=== PATIENT | male | born 1940 | race Caucasian/White ===

== ENCOUNTER → 2023-04-19 07:46 | Outpatient (REF) | payer MEDICARE, SELFPAY ==
[2023-04-19 09:49] LABS: Free T4 0.58 ng/dl (0.78-2.19)
== END ==
LOC: REG 07:46
PROVIDERS: ATTENDING PHYSICIAN Internal Medicine Endocrinology, Diabetes & Metabolism; FAMILY PHYSICIAN Family Medicine; REFERRING PHYSICIAN Internal Medicine Critical Care Medicine
DX: E04.1 Nontoxic single thyroid nodule (principal)
CPT/HCPCS: 36415; 84439; 84443

== ENCOUNTER → 2023-05-26 09:45 | Outpatient (REF) | payer MEDICARE, SELFPAY | LOC: RCS 09:45 | PROVIDERS: ATTENDING PHYSICIAN Physician Assistant Medical; FAMILY PHYSICIAN Family Medicine; OTHER PHYSICIAN Surgery; REFERRING PHYSICIAN Internal Medicine Critical Care Medicine | DX: R07.9 Chest pain, unspecified (principal) | CPT/HCPCS: 93017; 93350 ==

== ENCOUNTER → 2023-06-05 15:09 | Outpatient (REF) | payer MEDICARE, SELFPAY | LOC: HWRAD 15:09 | PROVIDERS: ATTENDING PHYSICIAN Internal Medicine Critical Care Medicine; FAMILY PHYSICIAN Family Medicine; OTHER PHYSICIAN Internal Medicine Endocrinology, Diabetes & Metabolism; REFERRING PHYSICIAN Surgery | DX: R91.1 Solitary pulmonary nodule (principal) | CPT/HCPCS: 71250 ==

== ENCOUNTER → 2023-10-31 07:14 | Outpatient (REF) | payer MEDICARE, SELFPAY ==
[2023-10-31 09:22] LABS: % Basophils 0.2 % (0-2); % Eosinophils 1.2 % (0-6); % Immature Granulocytes 0.4 % (0-0.5); % Lymphocytes 26.8 % (20.5-51.1); % Neutrophils 61.4 % (42.2-75.2); Absolute Eosinophils 0.1 10^3/uL (0-0.7); Absolute Lymphocytes 1.3 10^3/uL (1.2-3.4); Absolute Monocytes 0.5 10^3/uL (0.1-0.6); Hematocrit 36.4 % (39.0-52.0); Hemoglobin 12.3 g/dL (13.0-18.0); Mean Corp Hgb Conc. 33.8 g/dL (33.0-37.0); Mean Corpuscular Hgb 32.2 pg (27.0-31.0); Mean Corpuscular Volume 95.3 fL (80.0-94.0); Mean Platelet Volume 10.8 fL (7.4-10.4); Nucleated Red Blood Cells % 0 % (-); Platelet Count 158 10^3/uL (130-400); Red Blood Cell Count 3.82 10^6/uL (4.70-6.10); Red Cell Dist. Width 13.9 % (11.5-14.5); White Blood Cell Count 4.9 10^3/uL (4.8-10.8)
[2023-10-31 09:38] LABS: ALT (SGPT) 17 U/L (0-50); AST (SGOT) 27 U/L (17-59); Albumin 3.7 g/dl (3.5-5.0); Alkaline Phosphatase 103 U/L (38-126); Blood Urea Nitrogen 19 mg/dl (9-20); Calcium 8.5 mg/dl (8.4-10.2); Carbon Dioxide 28 mmol/L (22-30); Chloride 105 mmol/L (98-107); Glucose 111 mg/dl (70-99); HDL Cholesterol 42 mg/dl; LDL Cholesterol, Calculated 77 mg/dl; Potassium 4.7 mmol/L (3.5-5.1); Sodium 144 mmol/L (135-145); Total Bilirubin 0.7 mg/dl (0.2-1.3); Total Cholesterol 131 mg/dl (50-199); Total Protein 6.5 g/dl (6.3-8.2); Triglyceride 63 mg/dl (10-149); Very Low Density Lipoprotein 12 mg/dl (0-30); eGFR > 60.00
== END ==
LOC: HWLAB 07:14
PROVIDERS: ATTENDING PHYSICIAN Family Medicine
DX: I10 Essential (primary) hypertension (principal); E78.5 Hyperlipidemia, unspecified; C34.92 Malignant neoplasm of unspecified part of left bronchus or lung
CPT/HCPCS: 36415; 80053; 80061; 85025

== ENCOUNTER → 2023-11-17 07:33 | Outpatient (REF) | payer MEDICARE, SELFPAY ==
[2023-11-17 09:35] LABS: % Basophils 0.2 % (0-2); % Eosinophils 0.6 % (0-6); % Immature Granulocytes 0.2 % (0-0.5); % Lymphocytes 19.3 % (20.5-51.1); % Monocytes 6.7 % (1.7-9.3); Absolute Monocytes 0.3 10^3/uL (0.1-0.6); Absolute Neutrophils 3.7 10^3/uL (1.4-6.5); Hematocrit 37.5 % (39.0-52.0); Hemoglobin 12.5 g/dL (13.0-18.0); Mean Corp Hgb Conc. 33.3 g/dL (33.0-37.0); Mean Corpuscular Hgb 30.9 pg (27.0-31.0); Mean Corpuscular Volume 92.8 fL (80.0-94.0); Mean Platelet Volume 11.3 fL (7.4-10.4); Nucleated Red Blood Cells % 0 % (-); Platelet Count 161 10^3/uL (130-400); Red Blood Cell Count 4.04 10^6/uL (4.70-6.10); Red Cell Dist. Width 13.4 % (11.5-14.5); White Blood Cell Count 5.1 10^3/uL (4.8-10.8)
[2023-11-17 10:20] LABS: Iron 80 ug/dl (49-181)
[2023-11-17 10:50] LABS: Ferritin 95.6 ng/ml (17.9-464.0)
== END ==
LOC: HWLAB 07:33
PROVIDERS: ATTENDING PHYSICIAN Family Medicine
DX: D64.9 Anemia, unspecified (principal)
CPT/HCPCS: 36415; 82728; 83540; 85025

== ENCOUNTER → 2023-12-12 10:19 | Outpatient (REF) | payer MEDICARE, SELFPAY | LOC: HWRAD 10:19 | PROVIDERS: ATTENDING PHYSICIAN Internal Medicine Critical Care Medicine; FAMILY PHYSICIAN Family Medicine; OTHER PHYSICIAN Internal Medicine Endocrinology, Diabetes & Metabolism; REFERRING PHYSICIAN Surgery | DX: C34.92 Malignant neoplasm of unspecified part of left bronchus or lung (principal) | CPT/HCPCS: 71250 ==

== ENCOUNTER → 2024-01-18 13:02 | Outpatient (REF) | payer MEDICARE, SELFPAY | LOC: HWRCS 13:02 | PROVIDERS: ATTENDING PHYSICIAN Nurse Practitioner; FAMILY PHYSICIAN Family Medicine | DX: R06.02 Shortness of breath (principal); R07.9 Chest pain, unspecified | CPT/HCPCS: 93306 ==

== ENCOUNTER → 2024-01-22 08:00 | Outpatient (REF) | payer MEDICARE, SELFPAY | LOC: DHCBC/DCA 08:00 | PROVIDERS: ATTENDING PHYSICIAN Nurse Practitioner; FAMILY PHYSICIAN Family Medicine | DX: R06.02 Shortness of breath (principal); R07.9 Chest pain, unspecified | CPT/HCPCS: 78452; 93017; A9500 ==

== ENCOUNTER → 2024-01-29 07:59 | Outpatient (REF) | payer MEDICARE, SELFPAY ==
[2024-01-29 08:39] LABS: Ionized Calcium 1.14 mMOL/L (1.15-1.33)
[2024-01-29 09:06] LABS: ALT (SGPT) 35 U/L (0-50); AST (SGOT) 33 U/L (17-59); Albumin 4.1 g/dl (3.5-5.0); Alkaline Phosphatase 94 U/L (38-126); Blood Urea Nitrogen 17 mg/dl (9-20); Calcium 8.5 mg/dl (8.4-10.2); Carbon Dioxide 29 mmol/L (22-30); Chloride 104 mmol/L (98-107); Glucose 114 mg/dl (70-99); Potassium 4.6 mmol/L (3.5-5.1); Sodium 142 mmol/L (135-145); Total Bilirubin 0.6 mg/dl (0.2-1.3); Total Protein 7.2 g/dl (6.3-8.2); eGFR > 60.00
[2024-01-29 09:16] LABS: Free T4 0.65 ng/dl (0.78-2.19)
[2024-01-29 09:36] LABS: Vitamin D, 25-OH*** 27.6 ng/mL (30-80)
[2024-01-30 10:59] LABS: Intact PTH 53.9 pg/ml (13.6-85.8)
== END ==
LOC: REG 07:59
PROVIDERS: ATTENDING PHYSICIAN Internal Medicine Endocrinology, Diabetes & Metabolism; FAMILY PHYSICIAN Family Medicine; OTHER PHYSICIAN Surgery; REFERRING PHYSICIAN Internal Medicine Critical Care Medicine
DX: E04.1 Nontoxic single thyroid nodule (principal); E21.0 Primary hyperparathyroidism; E83.52 Hypercalcemia; E55.9 Vitamin D deficiency, unspecified
CPT/HCPCS: 36415; 80053; 82306; 82330; 83970; 84439; 84443

== ENCOUNTER → 2024-03-01 08:39 | Outpatient (REF) | payer MEDICARE, SELFPAY ==
[2024-03-01 11:45] LABS: Free T4 1.02 ng/dl (0.78-2.19)
[2024-03-01 11:59] LABS: TSH 5.66 uIU/ml (0.47-4.68)
== END ==
LOC: HWLAB 08:39
PROVIDERS: ATTENDING PHYSICIAN Internal Medicine Endocrinology, Diabetes & Metabolism; FAMILY PHYSICIAN Family Medicine; OTHER PHYSICIAN Internal Medicine Cardiovascular Disease; OTHER PHYSICIAN Surgery; REFERRING PHYSICIAN Internal Medicine Critical Care Medicine
DX: E03.9 Hypothyroidism, unspecified (principal)
CPT/HCPCS: 36415; 84439; 84443

== ENCOUNTER → 2024-05-17 08:02 | Outpatient (REF) | payer MEDICARE, SELFPAY ==
[2024-05-17 09:43] LABS: % Basophils 0.2 % (0-2); % Eosinophils 1.1 % (0-6); % Immature Granulocytes 0.2 % (0-0.5); % Lymphocytes 24.5 % (20.5-51.1); % Monocytes 9.3 % (1.7-9.3); % Neutrophils 64.7 % (42.2-75.2); Absolute Eosinophils 0.1 10^3/uL (0-0.7); Absolute Lymphocytes 1.1 10^3/uL (1.2-3.4); Absolute Monocytes 0.4 10^3/uL (0.1-0.6); Absolute Neutrophils 2.9 10^3/uL (1.4-6.5); Hematocrit 40.5 % (39.0-52.0); Hemoglobin 13.3 g/dL (13.0-18.0); Mean Corp Hgb Conc. 32.8 g/dL (33.0-37.0); Mean Corpuscular Hgb 30.9 pg (27.0-31.0); Mean Corpuscular Volume 94.2 fL (80.0-94.0); Nucleated Red Blood Cells % 0 % (-); Platelet Count 143 10^3/uL (130-400); Red Cell Dist. Width 14.4 % (11.5-14.5); White Blood Cell Count 4.5 10^3/uL (4.8-10.8)
[2024-05-17 10:23] LABS: Glycohemoglobin (HgbA1c) 5.7 % (4.0-5.6)
== END ==
LOC: HWLAB 08:02
PROVIDERS: ATTENDING PHYSICIAN Family Medicine
DX: D64.9 Anemia, unspecified (principal); R73.01 Impaired fasting glucose
CPT/HCPCS: 36415; 83036; 85025

== ENCOUNTER → 2024-05-30 10:15 | Outpatient (REF) | payer MEDICARE, SELFPAY | LOC: HWRAD 10:15 | PROVIDERS: ATTENDING PHYSICIAN Internal Medicine Critical Care Medicine; FAMILY PHYSICIAN Family Medicine; REFERRING PHYSICIAN Surgery | DX: C34.92 Malignant neoplasm of unspecified part of left bronchus or lung (principal) | CPT/HCPCS: 71250 ==

== ENCOUNTER → 2024-07-23 12:11 | Outpatient (REF) | payer MEDICARE, SELFPAY | LOC: HWRAD 12:11 | PROVIDERS: ATTENDING PHYSICIAN Internal Medicine Critical Care Medicine; FAMILY PHYSICIAN Family Medicine | DX: J44.9 Chronic obstructive pulmonary disease, unspecified (principal) | CPT/HCPCS: 71046 ==

== ENCOUNTER → 2024-08-20 08:56 | Outpatient (REF) | payer MEDICARE, SELFPAY ==
[2024-08-20 09:45] LABS: Ionized Calcium 1.09 mMOL/L (1.15-1.33)
[2024-08-20 10:20] LABS: ALT (SGPT) 19 U/L (0-50); AST (SGOT) 23 U/L (17-59); Albumin 4.2 g/dl (3.5-5.0); Alkaline Phosphatase 80 U/L (38-126); Blood Urea Nitrogen 15 mg/dl (9-20); Calcium 8.9 mg/dl (8.4-10.2); Carbon Dioxide 31 mmol/L (22-30); Chloride 107 mmol/L (98-107); Glucose 114 mg/dl (70-99); Potassium 4.5 mmol/L (3.5-5.1); Sodium 143 mmol/L (135-145); Total Bilirubin 0.7 mg/dl (0.2-1.3); Total Protein 7.2 g/dl (6.3-8.2); eGFR > 60.00
[2024-08-20 10:24] LABS: Blood Urea Nitrogen 14 mg/dl (9-20)
[2024-08-20 10:33] LABS: Free T4 0.63 ng/dl (0.78-2.19); Vitamin D, 25-OH*** 45.5 ng/mL (30-80)
[2024-08-20 10:46] LABS: TSH 9.11 uIU/ml (0.47-4.68)
[2024-08-21 10:36] LABS: Intact PTH 57.4 pg/ml (13.6-85.8)
== END ==
LOC: REG 08:56
PROVIDERS: ATTENDING PHYSICIAN Internal Medicine Endocrinology, Diabetes & Metabolism; FAMILY PHYSICIAN Family Medicine; OTHER PHYSICIAN Internal Medicine Critical Care Medicine; REFERRING PHYSICIAN Surgery
DX: E04.1 Nontoxic single thyroid nodule (principal); E21.0 Primary hyperparathyroidism; E83.52 Hypercalcemia; E55.9 Vitamin D deficiency, unspecified; C34.12 Malignant neoplasm of upper lobe, left bronchus or lung
CPT/HCPCS: 36415; 80053; 82306; 82330; 83970; 84439; 84443; 84520

== ENCOUNTER → 2024-08-30 08:46 | Outpatient (REF) | payer MEDICARE, SELFPAY | LOC: RAD 08:46 | PROVIDERS: ATTENDING PHYSICIAN Surgery; FAMILY PHYSICIAN Family Medicine | DX: C34.12 Malignant neoplasm of upper lobe, left bronchus or lung (principal) | CPT/HCPCS: 71260; Q9967 ==

== ENCOUNTER 2024-09-20 12:01 | Observation (INO) | payer MEDICARE, SELFPAY ==
[2024-09-20] VITALS (14 sets, daily range): BP systolic 103–158; BP diastolic 66–80; BMI 22.6; BMI 22.4
--- NOTE | 2024-09-20 08:19 | ED.GENMED ---
History of Present Illness
General
Chief Complaint: Fainting/Passed Out
Source: patient and ambulance crew
Exam Limitations: none
Time Seen by Provider: 09/20/24 08:05
History of Present Illness
History of Present Illness:
83yoM with a history of COPD, lung cancer s/p lobectomy, hyperlipidemia, hypertension, hyperparathyroidism, and GERD presenting via EMS for evaluation after a presumed syncopal episode. Patient was standing up and eating breakfast around 6:30am
this morning. He suddenly started to feel sick to his stomach, dizzy, and became very sweaty. He remembers being on the floor and crawling but does not remember getting there. He was eventually able to get up and called EMS about 30 minutes
later. Patient was bradycardic in the high 40s during EMS transport. He arrives with lacerations to his left eyebrow and nose. He is complaining of neck pain. He denies any chest pain, palpitations, tongue injury, incontinence. He has chronic
dyspnea from his COPD but it is no worse than usual. He believes his tetanus shot is up to date.
Past History
Past History
ED Past Medical History: HTN, Hypercholesterolemia, Psychiatric and Other (PE)
ED Past Surgical History: Other (hernia repair)
Social History
Tobacco: Former smoker
Alcohol: Daily (wine)
Drug: None
Personal:
Living: with family
Family History
Family History: Other
Phy Exam
General Physical Exam
General Presentation: well appearing and no apparent distress
General Skin: warm and dry
General Habitus: normal
General Mental: alert
ENT Exam
ENT Exam: normocephalic and other (Approx 4cm laceration noted above L eyebrow with minimal bleeding. Small laceration to nasal bridge that does not require suture repair.)
Additional ENT: Cervical collar in place
Eye Exam
Eye Exam: PERRL and conjunctiva normal
Cardiovascular Exam
Cardiovascular Exam: no edema and bradycardia
Pulmonary Exam
Pulmonary Exam: lungs clear, no respiratory distress, no rales, no crackles and no rhonchi
Gastrointestinal Exam
Gastrointestinal Exam: non tender, soft and non distended
Neurological Exam
Neurological Exam: alert
Dia Coma Scale
Eye Opening: Spontaneous
Verbal Response: Oriented
Motor Response: Obeys Commands
GCS Total Score: 15
Skin Exam
Skin Exam: normal color and warm/dry
Psychiatric Exam
Psychiatric Exam: normal mood/affect
Course
Orders/Labs/Results
Orders:
Orders
09/20/24 08:05
EKG [Electrocardiogram (*1)] Urgent
Reason for Study: Vertigo / Dizzy
CT Head W/o Iv Contrast Urgent
Comment:
Reason For Exam: fall with head strike
EKG- Treatment ONCE
09/20/24 08:12
Basic Metabolic Panel Urgent
Complete Blood Count/With Diff Urgent
09/20/24 08:18
CT Cervical Spine W/o Iv Contr Urgent
Comment:
Reason For Exam: fall, neck pain
CT Facial Bones W/o Iv Contras Urgent
Comment:
Reason For Exam: nasal/facial injury s/p fall
09/20/24 09:02
Free T4 Urgent
TSH Reflex To Free T4 Urgent
Troponin I Urgent
09/20/24 09:51
Zzgpb-Gvjn-Nyoxprv Urgent
Magnesium Urgent
Potassium Urgent
09/20/24 10:58
0.9% Sodium Chloride 500 ml [Nss] 500 ml IV BOLUS
Acetaminophen [Tylenol] 1,000 mg PO NOW STA
Abnormal Lab Results
09/20/24 09/20/24
08:12 09:02
RBC 4.09 L 10^6/uL
(4.70-6.10)
Hgb 12.7 L g/dL
(13.0-18.0)
Hct 38.3 L %
(39.0-52.0)
MCH 31.1 H pg
(27.0-31.0)
MPV 11.2 H fL
(7.4-10.4)
Chloride 108 H mmol/L
(98-107)
Glucose 169 H mg/dl
(70-99)
TSH (Reflex) 12.30 H uIU/ml
(0.47-4.68)
Free T4 0.63 L ng/dl
(0.78-2.19)
09/20/24 08:12
09/20/24 09:51
Vital Signs
Initial and Last Documented VS:
Initial Vital Signs
Temp Pulse Resp BP Pulse Ox
98.6 F 43 16 140/66 100
09/20/24 08:07 09/20/24 08:07 09/20/24 08:07 09/20/24 08:07 09/20/24 08:07
Last Documented Vital Signs
Temp Pulse Resp BP Pulse Ox
98.6 F 61 25 144/70 97
09/20/24 08:07 09/20/24 10:09 09/20/24 10:09 09/20/24 10:09 09/20/24 10:09
Procedures
Laceration Closure
Left Eye brow:
Status of Wound: clean
Size of Wound in cm: 4
Description of Wound Edges: ragged
Preparation: cleaned with saline
Anesthesia: 1% Lidocaine with epi
Revision/Debridement: routine- no revision
Wound exploration: explored to base- no FB
Type of Closure: single layer closure
Skin Closure Material: 6-0 nylon
Number of sutures: 8
MDM/Problems Addressed
Differential Diagnosis Includes:
83yoM presenting after what sounds like a syncopal episode. Standing up and got dizzy/diaphoretic and woke up on the floor. C/o neck pain and arrives with a cervical collar. Lacerations to the L eyebrow and nose noted on exam. HR 43 on arrival. BP
stable. Differential diagnosis includes but is not limited to: vasovagal episode, orthostatic hypotension, dehydration, cardiogenic syncope, less likely seizure
Initial ED plan: Check cardiac labs, TSH, EKG, and CT head/cervical spine/facial bones to evaluate for injury. Repair eyebrow laceration.
*Pulse Oximetry
SaO2: 96
Oxygen Mode of Delivery: Room air
Patient hypoxic: no (100%)
*EKG
Interpreted by ED Provider?: Yes
EKG Intrepretation Date: 09/20/24
Heart Rate: 49
Rate: bradycardiac
Rhythm: sinus
Plaza: normal axis
Interval: normal interval
QRS Pattern: normal QRS
Ischemia: no ischemia
*Critical Care Note
Total Time (30-74mins, 75-104mins- exclusive of procedures): Not Applicable
Update Note
Update Note:
EKG shows sinus bradycardia without any evidence of heart block. Electrolytes within normal limits. TSH is elevated at 12.3 and T4 is low. Patient admits to stopping his levothyroxine about a month and a half ago. Imaging shows nasal bone
fractures without any other injuries. Patient complaining of persistent dizziness on reassessment. Will admit for further evaluation and monitoring.
ED Attending Note
-
Portions of this chart may have been created with voice recognition software.� Occasional wrong word or��sound alike� substitutions may have occurred due to the inherent limitations of voice recognition software.
Discharge Plan
Departure
Patient Disposition: Admit
Date of Disposition: 09/20/24
Time of Disposition: 11:00
Presentation/result/management discussed w/ accepting MD/DO: Hospitalist
Discharge Problem:
Syncope, Sinus bradycardia, Elevated TSH, Fracture of nasal bone, Laceration of left eyebrow
Prescriptions:
No Action
atorvastatin 20 mg Tablet
20 mg PO QPM
multivitamin Tablet
1 tab PO DAILY
vitamin B complex Tablet
1 tab PO DAILY
ferrous sulfate 325 mg (65 mg iron) Tablet
325 mg PO DAILY
lisinopril 5 mg Tablet
5 mg PO QPM
cholecalciferol (vitamin D3) [Vitamin D3] 25 mcg (1,000 unit) Capsule
25 mcg PO DAILY
zolpidem [Ambien] 5 mg Tablet
2.5 - 5 mg PO HS PRN (Reason: sleep )
quetiapine [Seroquel] 25 mg Tablet
7 - 12.5 mg PO HS PRN (Reason: sleep )
levothyroxine 50 mcg Tablet
50 mcg PO DAILY
Referrals:
Shayy Castillo DO [Family Provider, Family Practice]
Interventions
Interventions:
*Risk Screen - Suicide Last Done: 09/20/24 08:07
*General Assessment Last Done: 09/20/24 08:07
*Neglect/Abuse Screening Last Done: 09/20/24 08:07
*ED- Fall Risk Assessment Last Done: 09/20/24 08:07
*ED COVID-19 Vaccine History Last Done: 09/20/24 08:07
ED- Cardiac Assessment Last Done: 09/20/24 08:07
ED- Neurological Assessment Last Done: 09/20/24 08:07
Discharge Date and Time
Print Language: GREEK
[2024-09-20 08:38] LABS: Hematocrit 38.3 % (39.0-52.0); Hemoglobin 12.7 g/dL (13.0-18.0); Mean Corp Hgb Conc. 33.2 g/dL (33.0-37.0); Mean Corpuscular Volume 93.6 fL (80.0-94.0); Nucleated Red Blood Cells % 0 % (-); Platelet Count 136 10^3/uL (130-400); Red Cell Dist. Width 13.9 % (11.5-14.5)
[2024-09-20 08:39] LABS: Blood Urea Nitrogen 20 mg/dl (9-20); Calcium 8.7 mg/dl (8.4-10.2); Carbon Dioxide 26 mmol/L (22-30); Chloride 108 mmol/L (98-107); Estimated Creatinine Clearance 67 ml/min; Glucose 169 mg/dl (70-99); Sodium 138 mmol/L (135-145); eGFR > 60.00
[2024-09-20 09:42] LABS: Troponin I < 0.012 ng/ml
[2024-09-20 10:20] LABS: ALT (SGPT) 19 U/L (0-50); AST (SGOT) 25 U/L (17-59); Albumin 4.0 g/dl (3.5-5.0); Alkaline Phosphatase 69 U/L (38-126); Magnesium 2.0 mg/dl (1.6-2.3); Potassium 4.2 mmol/L (3.5-5.1); Total Protein 6.6 g/dl (6.3-8.2)
[2024-09-20] MEDS: TYLENOL 1000 MG PO (11:19)
[2024-09-20] MEDS: NSS 500 IV (11:20)
--- NOTE | 2024-09-20 11:51 | HPS.HSE ---
Family Physician
-
Family Physician: Shayy Castillo
Chief Complaint
-
Syncope
History of Present Illness
Patient 83 years old male with history of multiple comorbidities came into the hospital with a syncope event. Patient was having breakfast this morning and suddenly felt nausea and dizzy and diaphoretic and passed out. He does not recall a lot of
the details. Denies chest pain or worsening shortness of breath. Denies fevers or chills nausea vomiting or diarrhea recently. He was noted to be bradycardic by EMS and there is a twelve-lead EKG obtained in the ED that shows that he was still
bradycardic but normal AV block or pauses. He had a laceration on the left forehead that had to be sutured and his nose is painful and complain of neck discomfort. He tells me that he follows up with Dr. Nguyen as outpatient and saw him
relatively recently a couple months ago. He was referred to the hospitalist service for further evaluation.
Medical History
Past Medical History
Past Medical History: Reports Other (Hypertension, hyperlipidemia, hyperparathyroidism, GERD, COPD, lung cancer status post lobectomy, PE.)
Past Surgical History: Reports Other (Hernia repair)
Social History
Tobacco: Former Smoker
Alcohol: None
Drug: None
Family History
Family History: Not pertinent
Allergies / Home Medications
Allergies reflects when Allergies were last updated in [facility].
Home Medications with original date entered in [facility]
Allergy/Medication List:
Allergies
Allergy/AdvReac Type Severity Reaction Status Date / Time
No Known Allergies Allergy Verified 03/28/23 06:35
Home Medications
atorvastatin 20 mg tablet 20 mg PO QPM High Cholesterol 06/11/22
lisinopril 5 mg tablet 5 mg PO QPM Blood Pressure 03/22/23
zolpidem 5 mg tablet (Ambien) 2.5 mg PO HSPRN PRN sleep 03/22/23
cholecalciferol (vitamin D3) 25 mcg (1,000 unit) chewable tablet (Vitamin D3) 25 mcg PO DAILY 09/20/24
cyanocobalamin (vitamin B-12) 1,000 mcg sublingual lozenge 1,000 mcg sublingual DAILY 09/20/24
ferrous sulfate 325 mg (65 mg iron) tablet 325 mg PO DAILY 09/20/24
levothyroxine 50 mcg tablet 50 mcg PO MOTUWETHFRSA 09/20/24
Review of Systems
-
A 12 point ROS was completed and negative except as noted: Yes
Physical Exam
Vital Signs
Vital Signs
Temp Pulse Resp BP Pulse Ox
98.6 F 61 25 144/70 97
09/20/24 08:07 09/20/24 10:09 09/20/24 10:09 09/20/24 10:09 09/20/24 10:09
Physical exam:
General: Acutely ill
HEENT: Normocephalic, laceration sutured on the left forehead above eyebrow and Moist Mucous Membranes
Respiratory: Clear to Auscultation although relatively decreased breath sounds both bustamante; Negative Wheezes, Rales or Rhonchi
Cardiac: Regular Rhythm and S1/S2
GI: Soft, Nontender and Nondistended
Musculoskeletal: No Clubbing, No Cyanosis and No Edema
Neuro: Awake, Alert and Oriented, no neurological deficit
Psych: Calm
Physical Exam
General: Other
Laboratory Results
-
09/20/24 08:12
09/20/24 09:51
Laboratory Results
Total Bilirubin 0.8 mg/dl (0.2-1.3) 09/20/24 09:51
AST 25 U/L (17-59) 09/20/24 09:51
ALT 19 U/L (0-50) 09/20/24 09:51
Alkaline Phosphatase 69 U/L (38-126) 09/20/24 09:51
Troponin I < 0.012 ng/ml 09/20/24 09:02
Data Reviewed
-
Diagnostic Radiology: Image Personally Visualized and interpreted
Lab Data: Labs Reviewed by me
Impression/Plan
-
IMPRESSION:
Patient 83 years old male with multiple comorbidities came into the hospital with syncope/near syncope event.
PLAN:
Syncope/near syncope and sinus bradycardia:
Cardiac monitoring
Cardiology consult-discussed with cardiology via [facility] text today
Check orthostatics
Seen CT scan of the head and neck and no acute intraocular abnormalities or cervical fracture
Nasal fracture:
Conservative treatment
Follow-up with ENT as outpatient
Hypothyroidism:
Increased TSH and decrease free T4--> if he is taking his medications then he requires increased doses from his home doses but if he is not compliant he just need to restart his medications. Based on our conversation he has not been taking his
medications and he was willing to talk to his stoner hand on this coming Monday. He reports some shortness of breath related to thyroid replacement and I assured him that that is not related to that medication.
Restart home thyroid replacement
Hypertension:
Continue NITA inhibitor
Monitor blood pressure and adjust medications accordingly
DVT prophylaxis:
Lovenox SQ
CODE STATUS:
Full code
Time spent 55-minutes
--- NOTE | 2024-09-20 13:44 | CM ---
CM reviewed chart, patient seen bedside, initial assessment completed. 83yoM with a history of COPD, lung cancer s/p lobectomy, hyperlipidemia, hypertension, hyperparathyroidism, and GERD presenting via EMS for evaluation after a presumed syncopal
episode.
Patient resides with his in a two story [place] home, bedroom second floor (full flight up), one step to enter through garage. Patient reports he has been the caregiver for his as she recently had surgery. Patient denies use of DME,
reports VN in past (2023., unsure agency). Patient reports SNF in past after shoulder surgery, unsure facility. Patient PCP Shayy Castillo, [facility], confirms prescription coverage. Patient denies insecurities at home. KEANE form
verbally reviewed, provided patient with copy, scanned in chart. CM will continue to follow for all discharge planning needs.
Plan; home with , watch for VN needs
--- NOTE | 2024-09-20 14:51 | EDRN ---
this RN called the receiving unit and notified them that paper report was going to be tubed up
--- NOTE | 2024-09-20 15:02 | CON.CAR ---
Addendum entered and electronically signed by Hang Diaz MD 09/20/24 15:33:
I saw and examined the patient.
The Clinical Specialist Vascular's note was reviewed and I agree with the note.
Comment:
GEN: No distress, awake, Ox3
HEENT: supple, anicteric, mmm, left frontal scalp hematoma
LUNGS: CTA, no wheezes/rales
CV: Reg, S1/S2, /6 syst LSB, no gallop
ABD: soft, BS+, NT/ND
EXT: No edema
NEURO: Gross non-focal
SKIN: No rash
Plan:
83-year-old male with past medical history of hypertension, hyperlipidemia, hypothyroidism, lung cancer status post left upper lobe lobectomy, and PE who presents to [facility] status post syncope today. Patient states that this morning he
woke up and began walking and suddenly had an episode of syncope. He had no chest pains palpitations and has had no episode like this previous. He woke up call 911 and presented to the emergency room. He was found to have bradycardia with heart
rates in the 40s. He has no history of bradycardia or prior syncope. He was not taking his levothyroxine for his hypothyroidism for 1 month. He is off all AV christel blockers.
He presents with unexplained syncope. Possible etiologies include vasovagal, hypotension, versus arrhythmia. I reviewed his telemetry and his current heart rate is in the 60s and there is no evidence of heart block only sinus bradycardia.
Will continue to monitor on telemetry for 24 hours. Restart levothyroxine for hypothyroidism.
Blood pressure is currently stable. Echo from 6 months ago with preserved ejection fraction only mild to moderate valve disease.
Patient not hypoxic or tachycardic suggestive of thromboembolic disease.
Would follow for 24 hours with orthostatic blood pressures and vital signs. If no further findings will arrange outpatient monitoring.
Original Note:
Consultation
Consultation Request
Date/Time Consultation Performed: 09/20/24
Requesting Provider: Dr. Mohr
Performing Provider: Monique Guzman PA-C for Dr. Diaz
Reason for Consultation: syncope, bradycardia
Medical History
-
Chief Complaint: syncope, facial laceration
History of Present Illness:
Patient is an 83-year-old male with past medical history of hypertension, hyperlipidemia, possible history of A-fib (unclear by records and patient denies), left lung cancer status post left upper lobectomy 2023, history of PE who presents to
[facility] after episode of presumed syncope earlier today. He states he woke up and ate a banana. Then he states while walking around 7 AM he became profoundly woozy and dizzy and was sweating over his entire body. He states he has
never felt this way before. He states he then woke up on the floor and reports having hit his head on something although he is unsure of what. His was at home, but upstairs so did not witness the event. He states then following that he got
significant abdominal pain. He was able to crawl to the bathroom to have a bowel movement. He then called 911. He denies chest pain or palpitations associated with the event. On arrival was noted to be bradycardic with heart rates in the 40s.
Cardiology consulted for evaluation. He reports he stopped taking his outpatient Synthroid several months ago as he felt that may be contributing to some shortness of breath he had been having.
PMH:
Hypertension
Hyperlipidemia
Possible history of A-fib
Left lung cancer status post left upper lobectomy 03/2023
History of PE
Hypothyroidism
Insomnia
Past Medical History
Past Medical History: Other (in HPI)
Social History
Tobacco: Former Smoker
Alcohol: Occasional
Personal:
Living: With Family
Employment: Retired
Allergies / Home Medications
Allergy/AdvReac Type Severity Reaction Status Date / Time
No Known Allergies Allergy Verified 03/28/23 06:35
�Medication �Instructions �Recorded �Confirmed �Type
atorvastatin 20 mg tablet 20 mg PO QPM High Cholesterol 06/11/22 09/20/24 History
lisinopril 5 mg tablet 5 mg PO QPM Blood Pressure 03/22/23 09/20/24 History
zolpidem 5 mg tablet (Ambien) 2.5 mg PO HSPRN PRN sleep 03/22/23 09/20/24 History
cholecalciferol (vitamin D3) 25 25 mcg PO DAILY Supplement 09/20/24 09/20/24 History
mcg (1,000 unit) chewable tablet
(Vitamin D3)
cyanocobalamin (vitamin B-12) 1,000 mcg sublingual DAILY 09/20/24 09/20/24 History
1,000 mcg sublingual lozenge Supplement
ferrous sulfate 325 mg (65 mg 325 mg PO DAILY Supplement 09/20/24 09/20/24 History
iron) tablet
levothyroxine 50 mcg tablet 50 mcg PO MOTUWETHFRSA Thyroid 09/20/24 09/20/24 History
Review of Systems
-
History Source: Patient
All other systems: Negative unless noted
Physical Exam
Vital Signs
Temp Pulse Resp BP Pulse Ox
98.6 F 63 0 158/76 100
09/20/24 08:07 09/20/24 14:45 09/20/24 14:45 09/20/24 14:00 09/20/24 14:45
Lab Results
09/20/24 08:12
09/20/24 09:51
Troponin I < 0.012 ng/ml 09/20/24 09:02
Physical Exam
General: No Apparent Distress and Comfortable
HEENT: Normocephalic, Anicteric, Moist Mucous Membranes and Other (Small laceration on left upper nose as well as larger laceration with 8 stitches over left eyebrow)
Respiratory: Clear and Non Labored Respirations
Cardiac: S1/S2 and Regular Rhythm
GI: Soft, Non Tender, Non Distended and Normal Bowel Sounds
Musculoskeletal: No Clubbing, No Cyanosis and No Edema
Skin: Warm and Dry
Neuro: AO x 3
Impression / Plan
-
Primary scraper hand: Dr. Nguyen
Assessment:
Presentation with syncope
Left forehead laceration requiring sutures
Nasal fracture
Sinus bradycardia
Hypothyroidism (TFTs abnormal, off OP synthroid)
Hypertension
Hyperlipidemia
Possible history of A-fib
Left lung cancer status post left upper lobectomy 03/2023
History of PE
Insomnia
ECHO 01/18/2024: EF 65 to 70%, mild concentric LVH, mild to moderate MR, mild TR, PAP 32 mmHg
Plan:
- Patient presented with syncopal episode resulting in left forehead laceration and nasal fracture. Head CT without acute intracranial abnormalities
- Cardiology consulted as patient noted to be cardiology consulted as patient noted to be sinus bradycardic with heart rates in the 40s at times on telemetry. He has a history of asymptomatic sinus bradycardia with baseline heart rates in the 50s
to 60s. Heart rate is presently 58. he is not on av christel blocking agents as OP
-TFTs abnormal, likely due to recent discontinuation by patient of outpatient Synthroid. This could be contributing to bradycardia. Resume Synthroid per primary service
- Recent echocardiogram 01/2024 with results as above, EF preserved
- Troponin negative
- Episode seems most consistent with vagal etiology
- Will monitor on telemetry overnight. would consider for outpatient ekg monitor tech upon DC
- check ortho VS
Data Reviewed
-
EKG: Tracing Personally Visualized and interpreted
CT Scan: Report Reviewed by me
Medical Tests (Nuc Med, Echo etc): Report Reviewed by me
Labs: Labs Reviewed by me
Old Records: Reviewed
[2024-09-20] MEDS: SYNTHROID 50 MCG PO (16:13)
[2024-09-20] MEDS: LOVENOX 40 MG SC (17:05)
[2024-09-20] MEDS: ZESTRIL 5 MG PO (17:05)
[2024-09-20] MEDS: LIPITOR 20 MG PO (17:05)
[2024-09-20] MEDS: AMBIEN 2.5 MG PO (22:07)
[2024-09-20] MEDS: TYLENOL 650 MG PO (22:08)
[2024-09-21] VITALS (9 sets, daily range): BP systolic 130–159; BP diastolic 72–86; PULSE 63–67; O2SAT 97–98; BMI 22.5
[2024-09-21] MEDS: TYLENOL 650 MG PO ×2 (05:55→21:36)
[2024-09-21] MEDS: SYNTHROID 50 MCG PO (05:55)
[2024-09-21 08:23] LABS: Hematocrit 37.5 % (39.0-52.0); Hemoglobin 12.6 g/dL (13.0-18.0); Mean Corp Hgb Conc. 33.6 g/dL (33.0-37.0); Mean Corpuscular Volume 92.8 fL (80.0-94.0); Platelet Count 129 10^3/uL (130-400); Red Cell Dist. Width 14.0 % (11.5-14.5)
[2024-09-21 08:57] LABS: Blood Urea Nitrogen 14 mg/dl (9-20); Calcium 8.3 mg/dl (8.4-10.2); Carbon Dioxide 27 mmol/L (22-30); Chloride 107 mmol/L (98-107); Estimated Creatinine Clearance 89 ml/min; Glucose 111 mg/dl (70-99); Potassium 3.9 mmol/L (3.5-5.1); Sodium 138 mmol/L (135-145); eGFR > 60.00
--- NOTE | 2024-09-21 09:54 | W.PN.HOSP.TC ---
Today's Communication/Plan
-
See plan
Assessment / Plan
Assessment / Plan
Physical exam:
General: No acute distress
HEENT: Normocephalic, laceration sutured on the left forehead above eyebrow and Moist Mucous Membranes
Respiratory: Clear to Auscultation although relatively decreased breath sounds both bustamante; Negative Wheezes, Rales or Rhonchi
Cardiac: Regular Rhythm and S1/S2
GI: Soft, Nontender and Nondistended
Musculoskeletal: No Clubbing, No Cyanosis and No Edema
Neuro: Awake, Alert and Oriented, no neurological deficit
Psych: Calm
A/P:
Syncope/near syncope and sinus bradycardia:
Likely vasovagal
Cardiac monitoring
Cardiology consult appreciated
Checking orthostatics
Seen CT scan of the head and neck and no acute intraocular abnormalities or cervical fracture
Discussed about discharge planning and he wants to see how he does until tomorrow and it is not unreasonable
PT OT eval
Nasal fracture:
Conservative treatment
Follow-up with ENT as outpatient
Hypothyroidism:
Increased TSH and decrease free T4--> if he is taking his medications then he requires increased doses from his home doses but if he is not compliant he just need to restart his medications. Based on our conversation he has not been taking his
medications.
Restarted home thyroid replacement and keep appointment with endocrinology this coming Monday.
Hypertension:
Continue NITA inhibitor
Monitor blood pressure and adjust medications accordingly
DVT prophylaxis:
Lovenox SQ
CODE STATUS:
Full code
Time spent 35 minutes
Anticipated Discharge: Within 24 hours
Subjective/Interval History
-
Date of Service: September 21, 2024
Patient still feels some lightheadedness. No chest pain or shortness of breath
Objective Data
-
Labs:
Laboratory Results
09/21/24
06:45
WBC 5.2
Hgb 12.6 L
Hct 37.5 L
Plt Count 129 L
Sodium 138
Potassium 3.9
Chloride 107
Carbon Dioxide 27
BUN 14
Creatinine 0.6 L
Glucose 111 H
Calcium 8.3 L
Vital Signs:
Vital Signs
Temp Pulse Resp BP Pulse Ox
98.1 F 55 21 149/72 98
09/21/24 09:14 09/21/24 09:14 09/21/24 09:14 09/21/24 09:14 09/21/24 09:14
I&O
09/20/24 09/21/24 09/22/24
06:59 06:59 06:59
Intake Total 480 / 480
Output Total 925 / 925
Balance -445 / -445
--- NOTE | 2024-09-21 12:21 | W.PN.CARDCBS ---
Today's Communication / Plan
-
Hemodynamically stable, diagnosis is likely vasovagal. Recommend conservative measures such as make sure he stays well-hydrated and use of compression stockings. He will follow-up with Dr. Del Rio as an outpatient for further evaluation and
consideration for outpatient monitoring.
Impression / Plan
-
Primary campaign assistant: Dr. Nguyen
Assessment:
Presentation with syncope
Left forehead laceration requiring sutures
Nasal fracture
Sinus bradycardia
Hypothyroidism (TFTs abnormal, off OP synthroid)
Hypertension
Hyperlipidemia
Possible history of A-fib
Left lung cancer status post left upper lobectomy 03/2023
History of PE
Insomnia
ECHO 01/18/2024: EF 65 to 70%, mild concentric LVH, mild to moderate MR, mild TR, PAP 32 mmHg
Plan:
83-year-old male with past medical history of hypertension, hyperlipidemia, hypothyroidism, lung cancer status post left upper lobe lobectomy, and PE who presents to [facility] status post syncope today. Patient states that this morning he
woke up and began walking and suddenly had an episode of syncope. He had no chest pains palpitations and has had no episode like this previous. He woke up call 911 and presented to the emergency room. He was found to have bradycardia with heart
rates in the 40s. He has no history of bradycardia or prior syncope. He was not taking his levothyroxine for his hypothyroidism for 1 month. He is off all AV christel blockers.
He presents with unexplained syncope. Possible etiologies include vasovagal, hypotension, versus arrhythmia. Overall vasovagal seems most likely.
Reviewed his telemetry and his current heart rate is in the 60s and there is no evidence of heart block only sinus bradycardia, no malignant ventricular arrhythmias.
Abnormal TFTs likely related to patient stopping thyroid replacement. This could be contributing to some of his bradycardia and some of his symptoms. Levothyroxine has since been resumed.
From a cardiology standpoint no objection to discharge to home. Our office will arrange an outpatient monitor.
In the meantime suggest conservative measures such as making sure he stays well-hydrated and consideration for compression stockings.
Will sign off.
Progress Note - Swatch Cutter
Subjective
Date of Service: September 21, 2024
No chest pain shortness of breath palpitations or dizziness
Objective
Labs:
09/21/24 06:45
09/21/24 06:45
Labs
Hgb 12.6 g/dL (13.0-18.0) L 09/21/24 06:45
Hct 37.5 % (39.0-52.0) L 09/21/24 06:45
Plt Count 129 10^3/uL (130-400) L 09/21/24 06:45
Sodium 138 mmol/L (135-145) 09/21/24 06:45
Potassium 3.9 mmol/L (3.5-5.1) 09/21/24 06:45
BUN 14 mg/dl (9-20) 09/21/24 06:45
Creatinine 0.6 mg/dL (0.7-1.3) L 09/21/24 06:45
Glucose 111 mg/dl (70-99) H 09/21/24 06:45
Troponins
09/20/24
09:02
Troponin I < 0.012
Vital Signs and I&O:
Vital Signs
Temp Pulse Resp BP Pulse Ox
97.6 F 53 16 159/86 98
09/21/24 11:48 09/21/24 11:48 09/21/24 11:48 09/21/24 11:48 09/21/24 09:14
Vital Signs
Temp Pulse Resp BP Pulse Ox
97.6 F 53 16 159/86 98
09/21/24 11:48 09/21/24 11:48 09/21/24 11:48 09/21/24 11:48 09/21/24 09:14
Intake & Output
09/19/24 09/20/24 09/21/24 09/22/24
06:59 06:59 06:59 06:59
Intake Total 480 / 480
Output Total 925 / 925 400 / 400
Balance -445 / -445 -400 / -400
Physical Exam
Physical Exam
Well-appearing no acute distress
Regular rate and rhythm normal S1 and S2 no S3 no S4 3 1/6 apical holosystolic murmur no rubs
Lungs clear auscultation bilaterally
Abdomen soft nontender nondistended normoactive bowel
Extremities with trace pedal edema about
[2024-09-21] MEDS: ZESTRIL 5 MG PO (17:32)
[2024-09-21] MEDS: LIPITOR 20 MG PO (17:35)
[2024-09-21] MEDS: LOVENOX 40 MG SC (17:35)
[2024-09-21] MEDS: AMBIEN 2.5 MG PO (23:59)
[2024-09-22 03:00] VITALS: BP 144/76
[2024-09-22 07:21] VITALS: BP 134/70
--- NOTE | 2024-09-22 08:16 | W.PN.HOSP.TC ---
Today's Communication/Plan
-
Discharge planning today
Assessment / Plan
Assessment / Plan
Physical exam:
General: No acute distress
HEENT: Normocephalic, laceration sutured on the left forehead above eyebrow and Moist Mucous Membranes
Respiratory: Clear to Auscultation although relatively decreased breath sounds both bustamante; Negative Wheezes, Rales or Rhonchi
Cardiac: Regular Rhythm and S1/S2
GI: Soft, Nontender and Nondistended
Musculoskeletal: No Clubbing, No Cyanosis and No Edema
Neuro: Awake, Alert and Oriented, no neurological deficit
Psych: Calm
A/P:
Syncope/near syncope and sinus bradycardia:
Likely vasovagal
Cardiac monitoring
Cardiology consult appreciated
Checking orthostatics
Seen CT scan of the head and neck and no acute intraocular abnormalities or cervical fracture
Discussed about discharge planning and he wants to see how he does until tomorrow and it is not unreasonable
PT OT eval appreciated and recommended outpatient PT
Plan for discharge today
Postconcussion symptoms:
Some of his symptoms also are part of postconcussion so discussed with patient our recommendations.
He should take it easy upon discharge but we do not advocate for bedrest so activity as tolerated would be advisable and continue with outpatient PT.
Nasal fracture:
Conservative treatment
Follow-up with possible ENT as outpatient but will defer to PCP first.
Hypothyroidism:
Increased TSH and decrease free T4--> if he is taking his medications then he requires increased doses from his home doses but if he is not compliant he just need to restart his medications. Based on our conversation he has not been taking his
medications.
Restarted home thyroid replacement and keep appointment with endocrinology this coming Monday.
Patient agreeable to continue with thyroid replacement
Hypertension:
Continue NITA inhibitor
Monitor blood pressure and adjust medications accordingly
DVT prophylaxis:
Lovenox SQ
CODE STATUS:
Full code
Anticipated Discharge: Today
Subjective/Interval History
-
Date of Service: September 22, 2024
Patient had a little bit of dizziness today but overall feels improved and able to ambulate without problems.
Objective Data
-
Vital Signs:
Vital Signs
Temp Pulse Resp BP Pulse Ox
98.4 F 59 18 134/70 99
09/22/24 07:21 09/22/24 07:21 09/22/24 07:21 09/22/24 07:21 09/22/24 07:21
I&O
09/21/24 09/22/24 09/23/24
06:59 06:59 06:59
Intake Total 480 / 480
Output Total 925 / 925 400 / 400
Balance -445 / -445 -400 / -400
--- NOTE | 2024-09-22 11:00 | W.DCSUMMARY ---
Discharge Summary
Discharge Data
Date of Admission: 09/20/24
Date of Discharge: 09/22/24
-
Pending Results: No
Hospital Course
Patient 83 years old male with past medical history hypertension, hyperlipidemia, hypothyroidism, lung cancer, PE, came into the hospital after syncope. Patient also was found to be bradycardic upon admission. Cardiology consulted. He was kept in
observation on a telemetry unit and no further events in terms of bradycardia arrhythmia were noticed. Cardiology felt this was vasovagal and cleared him for discharge. They deferred to his outpatient panel fitter if he requires any further
cardiac monitoring as outpatient. Patient did have some dizziness which most likely is related to postconcussion syndrome. Otherwise he is hemodynamically stable he has participated with PT OT and they recommended to continue outpatient PT. He
will be discharged in relatively stable condition today.
Discharge Plan
-
Patient Disposition: Home with Home Care
Discharge Diagnosis/Procedures: Syncope from vasovagal. Bradycardia, improved. Nasal fracture. Hypothyroidism. Postconcussion syndrome.
Diet: Low Cholesterol
Activity: As tolerated
Blood Work: Please PCP to order CBC, BMP within 1 week
Other Services: PT
Referrals:
Tam Nguyen MD [Active, Cardiology] - 10/10/24 8:40 am
Referral Note: You have a cardiology follow-up appointment at the [facility]. Please call with questions
Shayy Castillo DO [Family Provider, Family Practice] - in less than 1 week
Prescriptions:
Continued
atorvastatin 20 mg Tablet
20 mg PO QPM
lisinopril 5 mg Tablet
5 mg PO QPM
zolpidem [Ambien] 5 mg Tablet
2.5 mg PO HSPRN PRN (Reason: sleep )
levothyroxine 50 mcg Tablet
50 mcg PO MOTUWETHFRSA
ferrous sulfate 325 mg (65 mg iron) Tablet
325 mg PO DAILY
cholecalciferol (vitamin D3) [Vitamin D3] 25 mcg (1,000 unit) Tablet,Chewable
25 mcg PO DAILY
cyanocobalamin (vitamin B-12) 1,000 mcg Lozenge
1,000 mcg SUBLINGUAL DAILY
Discharge Orders:
Discharge Patient (As Directed); Ordered 09/22/24
Ordered By: Trenton Mohr
Discharge Date and Time
Discharge Date/Time: 09/22/24 13:53
Print Language: MARSHALLESE
[2024-09-22 11:13] VITALS: BP 142/80
--- NOTE | 2024-09-22 11:51 | PTCARENOTE ---
Pt is in bed AAOX3. Pt reporting dizziness, VSS. Pt stated 'I just have to sit for a bit and once I get my bearings I'll be fine'. No other distress noted or reported at this time. All needs met.
--- NOTE | 2024-09-22 16:43 | CM ---
Patient with Dx Syncope/near syncope and sinus bradycardia, Postconcussion symptoms, nasal fracture. PT recommends outpatient therapy, OT likely no needs.
Met with patient who was preparing for discharge.
The patient says he feels ready for discharge home today.
He would like to go to outpatient PT, and has a facility in mind that his is currently going to for therapy - informed patient script will be provided by .
His son will provide transport home.
Request to Dr Mohr for script for outpatient PT.
Plan home today with script for outpatient PT.
.
== END 2024-09-22 13:53 | disposition home or self-care (01) ==
LOC: 3 WEST ACU 12:01
PROVIDERS: Physician Assistant; ADMITTING PHYSICIAN Hospitalist; CONSULT PHYSICIAN Internal Medicine Cardiovascular Disease; EMERGENCY PHYSICIAN Emergency Medicine; FAMILY PHYSICIAN Family Medicine
DX: R00.1 Bradycardia, unspecified (principal); R55 Syncope and collapse; S02.2XXA Fracture of nasal bones, initial encounter for closed fracture; S01.81XA Laceration without foreign body of other part of head, initial encounter; F07.81 Postconcussional syndrome; W18.30XA Fall on same level, unspecified, initial encounter; J44.9 Chronic obstructive pulmonary disease, unspecified; I10 Essential (primary) hypertension; E78.00 Pure hypercholesterolemia, unspecified; E03.9 Hypothyroidism, unspecified; Z87.891 Personal history of nicotine dependence; Z86.711 Personal history of pulmonary embolism; G47.00 Insomnia, unspecified; Z85.118 Personal history of other malignant neoplasm of bronchus and lung; Z90.2 Acquired absence of lung [part of]; Z91.148 Patient's other noncompliance with medication regimen for other reason
CPT/HCPCS: 12013; 70450; 70486; 71046; 72125; 80048; 80076; 83735; 84132; 84439; 84443; 84484; 85025; 85027; 93005; 96360; 97162; 97166; 99285; G0378

== ENCOUNTER → 2024-09-27 06:56 | Outpatient (REF) | payer MEDICARE, SELFPAY ==
[2024-09-27 08:57] LABS: Hematocrit 40.5 % (39.0-52.0); Hemoglobin 13.3 g/dL (13.0-18.0); Mean Corp Hgb Conc. 32.8 g/dL (33.0-37.0); Mean Corpuscular Volume 94.0 fL (80.0-94.0); Nucleated Red Blood Cells % 0 % (-); Platelet Count 139 10^3/uL (130-400); Red Cell Dist. Width 13.9 % (11.5-14.5)
[2024-09-27 09:08] LABS: Blood Urea Nitrogen 17 mg/dl (9-20); Calcium 8.8 mg/dl (8.4-10.2); Carbon Dioxide 32 mmol/L (22-30); Chloride 103 mmol/L (98-107); Glucose 107 mg/dl (70-99); Potassium 3.9 mmol/L (3.5-5.1); Sodium 141 mmol/L (135-145); eGFR > 60.00
== END ==
LOC: HWLAB 06:56
PROVIDERS: ATTENDING PHYSICIAN Nurse Practitioner Family; REFERRING PHYSICIAN Internal Medicine Critical Care Medicine
DX: Z09 Encounter for follow-up examination after completed treatment for conditions other than malignant neoplasm (principal)
CPT/HCPCS: 36415; 80048; 85025

== ENCOUNTER → 2024-11-15 07:11 | Outpatient (REF) | payer MEDICARE, SELFPAY ==
[2024-11-15 10:24] LABS: ALT (SGPT) 17 U/L (0-50); AST (SGOT) 22 U/L (17-59); Albumin 4.1 g/dl (3.5-5.0); Alkaline Phosphatase 76 U/L (38-126); Blood Urea Nitrogen 14 mg/dl (9-20); Calcium 8.9 mg/dl (8.4-10.2); Carbon Dioxide 31 mmol/L (22-30); Chloride 105 mmol/L (98-107); Glucose 112 mg/dl (70-99); Potassium 4.6 mmol/L (3.5-5.1); Sodium 141 mmol/L (135-145); Total Protein 6.8 g/dl (6.3-8.2); eGFR > 60.00
[2024-11-15 10:46] LABS: TSH 3.72 uIU/ml (0.47-4.68)
== END ==
LOC: HWLAB 07:11
PROVIDERS: ATTENDING PHYSICIAN Internal Medicine Endocrinology, Diabetes & Metabolism; FAMILY PHYSICIAN Family Medicine; OTHER PHYSICIAN Internal Medicine Cardiovascular Disease; REFERRING PHYSICIAN Internal Medicine Critical Care Medicine
DX: E04.1 Nontoxic single thyroid nodule (principal)
CPT/HCPCS: 36415; 80053; 84439; 84443

== ENCOUNTER → 2024-12-03 12:21 | Outpatient (REF) | payer MEDICARE, SELFPAY | LOC: HWRAD 12:21 | PROVIDERS: ATTENDING PHYSICIAN Family Medicine | DX: R05.8 Other specified cough (principal) | CPT/HCPCS: 71046 ==

== ENCOUNTER → 2025-02-03 09:07 | Outpatient (REF) | payer MEDICARE, SELFPAY | LOC: HWRAD 09:07 | PROVIDERS: ATTENDING PHYSICIAN Internal Medicine Critical Care Medicine; FAMILY PHYSICIAN Family Medicine; OTHER PHYSICIAN Surgery; REFERRING PHYSICIAN Internal Medicine Endocrinology, Diabetes & Metabolism | DX: C34.92 Malignant neoplasm of unspecified part of left bronchus or lung (principal) | CPT/HCPCS: 71250 ==